=== PATIENT | female | born 1975 ===

== ENCOUNTER 2017-11-22 07:32 | Outpatient (REF) | payer SELFPAY ==
[2017-11-22 07:48] LABS: HGB 8.8 g/dL (12.0-15.5)
== END 2017-11-22 07:52 ==
LOC: LBN 07:32
PROVIDERS: Visit Provider Internal Medicine Nephrology
DX: R00.2 Palpitations (principal); R07.89 Other chest pain; R71.8 Other abnormality of red blood cells
CPT/HCPCS: 85018